=== PATIENT | female | born 1975 | race Caucasian/White ===

== ENCOUNTER → 2017-08-18 | Outpatient (CLI) | payer OTHER ==
[~2017-08-18] MED LIST: FLOMAX PO; LO-OVRAL-211 EACH PO; NORCO 5-325 TA1 EACH PO; SYNTHROID50 MCG PO; ZOFRAN ODT4 MG PO
== END ==
LOC: ULTRA 08:30
DX: E04.1 Nontoxic single thyroid nodule (principal)

== ENCOUNTER → 2021-07-27 | Outpatient (CLI) | payer OTHER | LOC: ULTRA 09:00 | PROVIDERS: ATTEND Family Medicine | DX: M79.605 Pain in left leg (principal) ==